=== PATIENT | male | born 1980 | race Caucasian/White ===

== ENCOUNTER 2018-11-22 09:12 | Emergency (ER) | payer BC ==
[2018-11-22 09:28] VITALS: BP 174/120
--- NOTE | 2018-11-22 09:43 | EDM.PDOC ---
ED HPI GENERAL MEDICAL PROBLEM - General Chief Complaint: Chest Pain Stated Complaint: CHEST TIGHT X 2 DAYS Time Seen by Provider: 11/22/18 09:20 Source of Information: Reports: Patient, RN Notes Reviewed History Limitations: Reports: No Limitations - History of Present Illness INITIAL COMMENTS - FREE TEXT/NARRATIVE: Patient is a 38 year old male who presents to the ED for the evaluation of chest pressure/tightness. The patient states that this chest pressure and pain started yesterday morning. He notes that he has been sick with a upper respiratory illness, and thought maybe this was pneumonia. But when the chest pressure and pain did not go away he decided he needed to come for evaluation. He tried to go to the walk-in clinic, but was diverted to the ER for evaluation of his chest pain. The patient notes that this pain is kind of like a big knot in his middle upper abdomen. He notes that the pain does not radiate anywhere. This stays constant in his chest. He states when he burps it kind makes the pain better, he does not note anything that necessarily makes the pain worse. The patient notes that he has a family history of MIs with his father having 2 heart attacks in his late 40s. The patient's primary care is Dr. Chiki Hameed in [place], [place]. The patient denies any history of heart issues, he states that he takes only fluoxetine and trazodone on a daily basis. The patient states he has had normal bowel movements in the past few days, he denies any nausea or vomiting or diarrhea, he complains of upper respiratory symptoms such as cough/ chest congestion from the cold. He states that he has had an appendectomy, but still retains his gallbladder. He denies any problems with blood pressure, his blood pressure at today's visit is 175/127. Chest Pain Score (Numeric/FACES): 6 - Related Data Allergies Allergy/AdvReac Type Severity Reaction Status Date / Time No Known Allergies Allergy Verified 11/13/14 19:20 CDT Home Meds: Home Meds FLUoxetine HCl [Fluoxetine] 40 mg PO BEDTIME 11/22/18 [History] traZODone HCl [Trazodone HCl] 50 mg PO ASDIRECTED 11/22/18 [History] Past Medical History - Past Health History Medical/Surgical History: Denies Medical/Surgical History - Past Surgical History GI Surgical History: Reports: Appendectomy Social & Family History - Family History Cardiac: Reports: OK (Father X2 OK, earliest in late 40s) - Tobacco Use Smoking Status *Q: Former Smoker Tobacco Use Within Last Twelve Months: No Used Tobacco, but Quit: Yes Month/Year Tobacco Last Used: quit smoking 10 years ago ED ROS GENERAL - Review of Systems Review Of Systems: See Below Constitutional: Denies: Fever, Chills HEENT: Reports: No Symptoms Respiratory: Reports: Shortness of Breath, Cough. Denies: Wheezing, Sputum Cardiovascular: Reports: Chest Pain (middle upper abdomen/chest discomfort) Endocrine: Reports: No Symptoms GI/Abdominal: Reports: Abdominal Pain (mid upper abd discomfort). Denies: Constipation, Diarrhea, Nausea, Vomiting : Reports: No Symptoms Musculoskeletal: Reports: No Symptoms Skin: Reports: No Symptoms Neurological: Reports: No Symptoms Psychiatric: Reports: No Symptoms Hematologic/Lymphatic: Reports: No Symptoms Immunologic: Reports: No Symptoms ED EXAM, GENERAL - Physical Exam Exam: See Below Exam Limited By: No Limitations General Appearance: Alert, WD/WN, No Apparent Distress Eye Exam: Bilateral Eye: Normal Inspection Throat/Mouth: Normal Inspection, Normal Lips, Normal Teeth, Normal Gums, Normal Oropharynx, Normal Voice, No Airway Compromise Head: Atraumatic, Normocephalic Neck: Normal Inspection Respiratory/Chest: No Respiratory Distress, Lungs Clear, No Accessory Muscle Use , Chest Non-Tender, Decreased Breath Sounds (diffuse mainly on R lung) Cardiovascular: Normal Peripheral Pulses, Regular Rate, Rhythm, No Murmur GI/Abdominal: Normal Bowel Sounds, Soft, No Distention, No Mass, Tender ( epigastrium) Extremities: Normal Inspection, Normal Capillary Refill Neurological: Alert, Oriented, Normal Cognition, No Motor/Sensory Deficits Psychiatric: Normal Affect, Normal Mood Skin Exam: Warm, Dry, Intact, Normal Color, No Rash EKG INTERPRETATION EKG Date: 11/22/18 Time: 09:20 Rhythm: NSR Rate (Beats/Min): 82 [place]: Normal P-Wave: Present QRS: Normal ST-T: Other (nonspecific ST changes V2-V3) QT: Normal Comparison: NA - No Prior EKG EKG Interpretation Comments: Reviewed with Dr. Stafford. Course - Vital Signs Last Recorded V/S: Last Vital Signs Temp 98.0 F 11/22/18 09:26 Pulse 80 05/24/19 09:26 Resp 16 11/22/18 09:26 BP 174/120 H 11/22/18 09:26 Pulse Ox 99 11/22/18 09:26 - Orders/Labs/Meds Orders: Active Orders 24 hr Category Date Time Status EKG Documentation Completion [RC] STAT Care 11/22/18 09:28 Ordered EKG Documentation Completion [RC] STAT Care 11/22/18 10:38 Ordered Chest 2V [CR] Stat Exams 11/22/18 09:28 Ordered Labs: Laboratory Tests 11/22/18 11/22/18 11/22/18 Range/Units 09:30 09:30 09:30 WBC 6.17 (4.23-9.07) K/mm3 RBC 5.13 (4.63-6.08) M/mm3 Hgb 16.2 (13.7-17.5) gm/L Hct 47.5 (40.1-51.0) % MCV 92.6 H (79.0-92.2) fl MCH 31.6 (25.7-32.2) pg MCHC 34.1 (32.2-35.5) g/dl RDW Std Deviation 42.5 (35.1-43.9) fL Plt Count 241 (163-337) K/mm3 MPV 10.0 (9.4-12.3) fl Neutrophils % (Manual) 61 H (40-60) % Band Neutrophils % 0 (0-10) % Lymphocytes % (Manual) 26 (20-40) % Atypical Lymphs % 0 % Monocytes % (Manual) 10 (2-10) % Eosinophils % (Manual) 3 (0.8-7.0) % Basophils % (Manual) 0 L (0.2-1.2) Platelet Estimate Adequate RBC Morph Comment Normal PT 10.2 (9.5-12.1) SECONDS INR 0.93 APTT 31 (24-31) SECONDS Sodium 138 (136-145) mEq/L Potassium 4.2 (3.5-5.1) mEq/L Chloride 100 (98-107) mEq/L Carbon Dioxide 27 (21-32) mEq/L Anion Gap 15.2 H (5-15) BUN 11 (7-18) mg/dL Creatinine 1.1 (0.7-1.3) mg/dL Est Cr Clr Drug Dosing 97.98 mL/min Estimated GFR (MDRD) > 60 (>60) mL/min BUN/Creatinine Ratio 10.0 L (14-18) Glucose 99 (74-106) mg/dL Calcium 9.2 (8.5-10.1) mg/dL Magnesium 2.2 (1.8-2.4) mg/dl Total Bilirubin 0.7 (0.2-1.0) mg/dL AST 30 (15-37) U/L ALT 70 H (16-63) U/L Alkaline Phosphatase 78 (46-116) U/L Troponin I < 0.017 (0.00-0.056) ng/mL Total Protein 7.8 (6.4-8.2) g/dl Albumin 3.9 (3.4-5.0) g/dl Globulin 3.9 gm/dL Albumin/Globulin Ratio 1.0 (1-2) Meds: Medications Discontinued Medications Generic Name Dose Route Start Last Admin Trade Name Freq PRN Reason Stop Dose Admin Al Hydroxide/Mg Hydroxide 30 0 ml 11/22/18 10:38 11/22/18 10:50 ml/ Lidocaine HCl 15 ml PO 11/22/18 10:39 45 ml ONETIME ONE Administration - Re-Assessments/Exams Free Text/Narrative Re-Assessment/Exam: 11/22/18 09:46 Patient presents to the ED for the evaluation of chest pain. I have ordered an EKG, CBC, CMP, troponin, PT, PTT/INR, and a chest x-ray for further evaluation of his symptoms. His initial EKG shows normal sinus rhythm, with a normal axis , with some nonspecific ST changes in V2 and V3. Will repeat EKG to make sure there are no worrisome changes versus normal early repolarization. 11/22/18 10:53 Labs are WNL, I did repeat the EKG and it is unchanged from the initial EKG, will recommend that he follow up with his PCP for the possibility of a stress test. I also did order a GI cocktail to see if this helps alleviates his symptoms. His heart score is 3, he would have a 0.9-1.7% chance of an adverser cardiac event within the next 6 weeks. This was discussed with the patient. Departure - Departure Time of Disposition: 11:15 Disposition: Home, Self-Care 01 Condition: Fair Clinical Impression: Chest discomfort, Viral URI with cough, Mild heartburn Instructions: Heartburn, [id number], Viral Respiratory Infection, Easy-To- Read Referrals: Jayden Hameed MD [Primary Care Provider] - Forms: ED Department Discharge, ED Return to Work/School Form Additional Instructions: You have been evaluated in the ED today for your chest discomfort. Your symptoms are not likely due to any cardiac etiology at this time. It is likely that you are having some residual discomfort/pain from the upper respiratory infection you have been suffering from for the last week or so. Your heart score is 3, which means you have a 0.9-1.7% chance of an adverse cardiac event within the next 6 weeks. Recommend that you take Tylenol 500 mg or ibuprofen 600 mg every 6 hours as needed for general aches and pains. Do not exceed 4000 mg Tylenol or 3200 mg ibuprofen in a 24-hour time span. You may want to try to start taking some [id number] omeprazole, to see if this doesn't alleviate some of your epigastric discomfort. Recommend that you follow up with your primary care provider within the next week, for the possibility of a cardiac stress test Please return to the ED if your symptoms should change or worsen. - My Orders Last 24 Hours: My Active Orders 11/22/18 09:28 EKG Documentation Completion [RC] STAT Chest 2V [CR] Stat 11/22/18 10:38 EKG Documentation Completion [RC] STAT - Assessment/Plan Last 24 Hours: My Active Orders 11/22/18 09:28 EKG Documentation Completion [RC] STAT Chest 2V [CR] Stat 11/22/18 10:38 EKG Documentation Completion [RC] STAT
[2018-11-22] MEDS ORDERED: Alum Hydrox/Mag Hydrox/Simeth 30 ML, Lidocaine 2% 15 ML PO ONE ×2 (10:38)
--- NOTE | 2018-11-22 11:30 | CR ---
Chest: Two views of the chest were obtained. Comparison: No prior chest x-ray. Heart size and mediastinum are normal. Lungs are clear. Bony structures are unremarkable. Impression: 1. Nothing acute is seen on two-view chest x-ray. Diagnostic code #1
== END 2018-11-22 11:31 | disposition home or self-care (01) ==
LOC: JD.ED 09:12
DX: J06.9 Acute upper respiratory infection, unspecified (principal); Z87.891 Personal history of nicotine dependence
CPT/HCPCS: 36415; 71046; 80053; 83735; 84484; 85007; 85027; 85610; 85730; 93005; 99285; A9270